=== PATIENT | female | born 1950 | race Caucasian/White ===

== ENCOUNTER 2020-03-24 08:49 | Day surgery (SDC) | payer MEDICARE ==
[~2020-03-24] VITALS: Ht 160 cm; Wt 99.5 kg
[2020-03-24 09:29] VITALS: BP 112/76
[2020-03-24] MEDS ORDERED: SODIUM CHLORIDE 0.9% 500 ML IV PRN (09:31)
[2020-03-24] MEDS ORDERED: METO-93 PO (09:39)
[2020-03-24] MEDS ORDERED: APIX5TAB PO (09:39)
[2020-03-24] MEDS ORDERED: AMIO200T42 PO (09:39)
[2020-03-24] MEDS ORDERED: SPIR25TA PO (09:39)
[2020-03-24] MEDS ORDERED: FURO40TA6 PO (09:39)
[2020-03-24] MEDS ORDERED: LOSA25TA25 PO (09:39)
[2020-03-24] MEDS ORDERED: PROPOFOL 10 MG/ML, 20ML ONE (10:32)
[2020-03-24] MEDS ORDERED: EPHEDRINE 50 MG/ML, 1ML ONE (10:32)
== END 2020-03-24 11:58 | disposition home or self-care (01) ==
LOC: CACL 08:49
PROVIDERS: ATTEND Internal Medicine Clinical Cardiac Electrophysiology
DX: I48.19 Other persistent atrial fibrillation (principal); I42.9 Cardiomyopathy, unspecified; I10 Essential (primary) hypertension; E66.3 Overweight; Z68.33 Body mass index [BMI] 33.0-33.9, adult; Z79.01 Long term (current) use of anticoagulants; Z79.899 Other long term (current) drug therapy; Z88.5 Allergy status to narcotic agent; Z91.040 Latex allergy status
CPT/HCPCS: 92960; 93005; J2704

== ENCOUNTER → 2020-06-05 | Outpatient (CLI) | payer MEDICARE ==
[~2020-06-05] MED LIST: AMIO200T42 PO; APIX5TAB PO; FURO40TA6 PO; LOSA25TA25 PO; METO-93 PO; SPIR25TA PO
== END | disposition home or self-care (01) ==
LOC: CFH 15:52
PROVIDERS: ATTEND Internal Medicine Cardiovascular Disease
DX: I08.1 Rheumatic disorders of both mitral and tricuspid valves (principal); I42.9 Cardiomyopathy, unspecified
CPT/HCPCS: 93306

== ENCOUNTER → 2021-01-29 | Outpatient (CLI) | payer MEDICARE ==
[~2021-01-29] MED LIST changes: +REGADENOSON 0.4 MG/5 ML SYRINGE ONE
== END | disposition home or self-care (01) ==
LOC: CFH 12:01
PROVIDERS: ATTEND Internal Medicine Cardiovascular Disease
DX: I21.29 ST elevation (STEMI) myocardial infarction involving other sites (principal); I48.0 Paroxysmal atrial fibrillation
CPT/HCPCS: 78452; 93017; A9502; J2785